=== PATIENT | female | born 1955 | race Caucasian/White ===

== ENCOUNTER 2016-07-08 10:02 | Outpatient (CLI) | payer BC | END 2016-07-08 10:03 | disposition home or self-care (01) | DX: Z79.899 Other long term (current) drug therapy (principal); N28.9 Disorder of kidney and ureter, unspecified ==

== ENCOUNTER 2016-07-13 07:04 | Outpatient (CLI) | payer BC ==
[2016-07-13] MEDS ORDERED: IOPAMIDOL-300 100 ML VIAL IVP ONE (08:44)
[2016-07-13] MEDS ORDERED: IOPAMIDOL-300 50 ML VIAL PO ONE (08:44)
== END 2016-07-13 07:05 | disposition home or self-care (01) ==
DX: R63.4 Abnormal weight loss (principal); E04.9 Nontoxic goiter, unspecified
CPT/HCPCS: 71260; 74177; Q9967

== ENCOUNTER 2016-07-20 09:31 | Outpatient (CLI) | payer BC | END 2016-07-20 09:32 | disposition home or self-care (01) | DX: E04.2 Nontoxic multinodular goiter (principal) ==

== ENCOUNTER 2016-07-28 09:50 | Outpatient (CLI) | payer BC | END 2016-07-28 09:51 | disposition home or self-care (01) | DX: E04.1 Nontoxic single thyroid nodule (principal); E01.0 Iodine-deficiency related diffuse (endemic) goiter ==

== ENCOUNTER 2016-08-04 09:25 | Outpatient (CLI) | payer BC ==
[2016-08-04] MEDS ORDERED: BUFFERED LIDOCAINE 10 ML SYRINGE IU ONE (10:50)
== END 2016-08-04 09:26 | disposition home or self-care (01) ==
DX: E04.1 Nontoxic single thyroid nodule (principal)

== ENCOUNTER 2016-08-14 10:48 | Emergency (ER) | payer BC | END 2016-08-14 12:54 | disposition home or self-care (01) | DX: F32.9 Major depressive disorder, single episode, unspecified (principal); G47.00 Insomnia, unspecified; I10 Essential (primary) hypertension ==

== ENCOUNTER 2016-09-27 13:49 | Outpatient (CLI) | payer BC | END 2016-09-27 13:50 | disposition home or self-care (01) | DX: Z12.31 Encounter for screening mammogram for malignant neoplasm of breast (principal) ==

== ENCOUNTER 2017-10-11 14:36 | Outpatient (CLI) | payer BC ==
--- NOTE | 2017-10-12 14:47 | Mammography Report ---
SCREENING MAMMOGRAM: 10/12/2017 CLINICAL INDICATION: A 62-year-old for screening. COMPARISON: 09/2016, 06/2014, 01/2013, 07/2011, 07/2010 TECHNIQUE: Routine CC and MLO projections were obtained of the breasts. FINDINGS: Parenchymal tissue within the breasts is predominantly fatty replaced. There are no dominant masses, suspicious microcalcifications, or secondary signs of malignancy. In comparison to the previous studies, there are no significant changes. IMPRESSION: NO MAMMOGRAPHIC EVIDENCE OF MALIGNANCY. NO SIGNIFICANT INTERVAL CHANGES. RECOMMENDATION: Screening mammography is recommended annually. BIRADS category 1 - negative. STANDARD QUALIFYING STATEMENTS: 1. This examination was reviewed with the aid of Computed-Aided Detection (CAD). 2. A negative or benign imaging report should not delay biopsy if clinically suspicious findings are present. Consider surgical consultation if warranted. More than 5% of cancers are not identified by imaging. 3. Dense breasts may obscure an underlying neoplasm. TD: 10/12/2017 14:47
== END 2017-10-11 14:37 | disposition home or self-care (01) ==
LOC: DI.N 14:36
PROVIDERS: ATTEND Family Medicine
DX: Z12.31 Encounter for screening mammogram for malignant neoplasm of breast (principal)
CPT/HCPCS: 77067

== ENCOUNTER 2017-12-27 16:40 | Outpatient (CLI) | payer BC ==
[2017-12-27 19:45] LABS: BILIRUBIN,URINE NEGATIVE (NEGATIVE); GLUCOSE, URINE (UA) NEGATIVE (NEGATIVE); KETONES,URINE (UA) NEGATIVE (NEGATIVE); LEUKOCYTE ESTERASE, URINE NEGATIVE (NEGATIVE); NITRITE,URINE NEGATIVE (NEGATIVE); OCCULT BLOOD,URINE NEGATIVE (NEGATIVE); PROTEIN,URINE NEGATIVE (NEGATIVE); UROBILINOGEN,URINE 0.2 (NORMAL) E.U./dL (NORMAL)
[2017-12-27 19:46] LABS: CLARITY,URINE TURBID (CLEAR)
[2017-12-27 20:06] LABS: AMORPHOUS SEDIMENT,UR Rare /LPF; BACTERIA,URINE Many /HPF (None Seen); RBC,URINE 0-5 /HPF (0-5); SQUAMOUS EPITHELIAL CELL,UR RARE Squamous (<= Few)
== END 2017-12-27 16:41 | disposition home or self-care (01) ==
LOC: LAB.R 16:40
PROVIDERS: ATTEND Obstetrics & Gynecology
DX: R82.99 Other abnormal findings in urine (principal)
CPT/HCPCS: 81001; 87086

== ENCOUNTER 2018-03-22 15:05 | Outpatient (CLI) | payer BC ==
--- NOTE | 2018-03-23 10:25 | Ultrasound Report ---
Reason: ABDOMINAL DISTENSION (GASEOUS) Procedure Date: 03/22/2018 Accession Number: [id number] / [id number] Procedure: US - Pelvic w/Transvaginal CPT Code: FULL RESULT: EXAM: PELVIC ULTRASOUND EXAM DATE: 03/22/2018 05:28 PM. CLINICAL HISTORY: Abdominal distension (gaseous). COMPARISON: ABDOMEN/PELVIS W/ 07/13/2016 8:40 AM. TECHNIQUE: Real-time transabdominal pelvic scan performed to identify the uterus and adnexa and as an overview of other pelvic structures, followed by transvaginal scan to provide greater detail of the uterus and adnexa, with static image documentation. FINDINGS: Uterus: 5.4 x 1.9 x 2.1 cm, volume 11.2 cc. Anteverted position. Heterogeneous. No mass. Masses: None. Endometrium: No polyp or mass. Endometrium is filled by fluid. Normal. Cervix: 1.4 x 1.1 x 1.4 cm hypoechoic avascular region in the cervix with dense posterior acoustic shadowing. Right Ovary: 2.1 x 1 x 1.5 cm, volume 1.6 cc. Normal echotexture and blood flow. Left Ovary: 3.8 x 1.3 x 1.4 cm, volume 3.6 cc. Normal echotexture and blood flow. Hypoechoic 1.7 x 1.6 x 1.8 cm left ovarian cyst. No vascular components or mural nodules. Free Fluid: None. Other: None. IMPRESSION: 1. Heterogeneous myometrium. No fibroid. 2. No endometrial mass or polyp. Endometrial canal is filled by fluid. Correlate for dysfunctional uterine bleeding. 3. Hypoechoic solid-appearing structure in the cervix/lower uterine segment measuring 1.4 x 1.1 x 1.4 cm demonstrating dense posterior acoustic shadowing. Potentially, this could be secondary to calcifications or mass. This may be amenable for direct visualization. 4. 1.7 x 1.6 x 1.8 cm left ovarian cyst. Otherwise, both ovaries and adnexa are normal. RADIA
== END 2018-03-22 15:06 | disposition home or self-care (01) ==
LOC: DI 15:05
PROVIDERS: ATTEND Obstetrics & Gynecology
DX: R14.0 Abdominal distension (gaseous) (principal); N83.202 Unspecified ovarian cyst, left side; N88.9 Noninflammatory disorder of cervix uteri, unspecified
CPT/HCPCS: 76830; 76856

== ENCOUNTER 2018-10-23 14:36 | Outpatient (CLI) | payer BC ==
--- NOTE | 2018-10-24 10:28 | Mammography Report ---
Reason: SCREENING MAMMO Procedure Date: 10/23/2018 Accession Number: [id number] / [id number] Procedure: MGN - Screening Mammo Dig Bilat CPT Code: FULL RESULT: EXAM: Screening Mammo Dig Bilat DATE: 10/23/2018 2:57 PM CLINICAL HISTORY: Screening examination. History of early menses. TECHNIQUE: (B) - Bilateral CC and MLO views were obtained. COMPARISON: 10/11/2017 through 02/05/2013. PARENCHYMAL PATTERN: (F) - The breast(s) demonstrate(s) diffuse fatty replacement. FINDINGS: There are no suspicious masses, calcifications, or areas of distortion. IMPRESSION: Negative examination. BI-RADS category 1. RECOMMENDATION: (ANNUAL) - Recommend routine annual screening mammography. BI-RADS CATEGORY: (1) - Negative. STANDARD QUALIFYING STATEMENTS: 1. This examination was not reviewed with the aid of Computer-Aided Detection (CAD). 2. A negative or benign imaging report should not preclude biopsy if clinically suspicious findings are present. 3. Dense breasts may obscure an underlying neoplasm. 4. This examination was reviewed without the aid of 3D breast imaging (tomosynthesis).
== END 2018-10-23 14:37 | disposition home or self-care (01) ==
LOC: DI.N 14:36
DX: Z12.31 Encounter for screening mammogram for malignant neoplasm of breast (principal)
CPT/HCPCS: 77067

== ENCOUNTER 2020-04-07 14:34 | Outpatient (CLI) | payer OTHER ==
--- NOTE | 2020-04-08 16:44 | Mammography Report ---
BILATERAL DIGITAL SCREENING MAMMOGRAM 3D/2D: 04/07/2020 CLINICAL: Routine screening. Comparison is made to exams dated: 10/23/2018 mammogram, 10/11/2017 mammogram, and 09/27/2016 mammogram - [facility]. The tissue of both breasts is predominantly fatty. No significant masses, calcifications, or other findings are seen in either breast. There has been no significant interval change. IMPRESSION: NEGATIVE There is no mammographic evidence of malignancy. A 1 year screening mammogram is recommended. This exam was interpreted at Station ID: [id number]. NOTE: For mammograms, a report in lay terms will be sent to the patient. Approximately 15% of breast malignancies will not be visualized mammographically. In the management of a palpable breast mass, a negative mammogram must not discourage biopsy of a clinically suspicious lesion. Electronically Signed By: Tomy hearn/[email or web address]:04/07/2020 17:04:16 ACR BI-RADS Category 1: Negative 3341F PARENCHYMAL PATTERN: (F) - The breast(s) demonstrate(s) diffuse fatty replacement. BI-RADS CATEGORY: (1) - 1 RECOMMENDATION: (ANNUAL) - Recommend routine annual screening mammography. [id number] 1 year screening LATERALITY: (B)
== END 2020-04-07 14:35 | disposition home or self-care (01) ==
LOC: DI.N 14:34
DX: Z12.31 Encounter for screening mammogram for malignant neoplasm of breast (principal)
CPT/HCPCS: 77063; 77067

== ENCOUNTER 2020-05-06 18:38 | Outpatient (CLI) | payer OTHER | END 2020-05-06 18:39 | disposition home or self-care (01) | LOC: COV 18:38 | PROVIDERS: ATTEND Family Medicine | DX: R05 Cough (principal); J02.9 Acute pharyngitis, unspecified; R19.7 Diarrhea, unspecified; Z20.828 Contact with and (suspected) exposure to other viral communicable diseases ==

== ENCOUNTER 2021-02-06 06:52 | Day surgery (SDC) | payer OTHER ==
[2021-02-06] MEDS ORDERED: LACTATED RINGERS 1,000 ML IV ONE ×2 (07:01→09:42)
[2021-02-06] MEDS ORDERED: MIDAZOLAM 2 MG/2 ML VIAL ONE ×2 (08:42→08:43)
[2021-02-06] MEDS ORDERED: fentaNYL 250 MCG/5 ML VIAL ONE (08:43)
--- NOTE | 2021-02-06 09:00 | HISTORY & PHYSICAL EXAMINATION ---
Chief Complaint - Chief Complaint Chief Complaint: Here for colon cancer screening History of Present Illness - History Obtained From Records Reviewed: yes History obtained from: pt Exam Limitations: none - History of Present Illness HPI Comment/Other: Normal colonoscopy over 10 years ago. Due for colon cancer screening. History - Past Medical History Cardiovascular: reports: Hypertension Respiratory: reports: None Endocrine/Autoimmune: reports: None GI: reports: None : reports: Renal insuffiency Psych: reports: Depression, Anxiety Musculoskeletal: reports: None Derm: reports: Other MRSA Hx?: No - Past Surgical History General: reports: Appendectomy Ortho: reports: Other Meds/Allgy - Home Medications Home Medications: Ambulatory Orders Medication Instructions Recorded Confirmed Mirtazapine 15 mg PO DAILY PM 02/05/21 02/05/21 Sertraline HCl 200 mg PO DAILY 02/05/21 02/05/21 - Allergies Allergies/Adverse Reactions: Allergies Allergy/AdvReac Type Severity Reaction Status Date / Time No Known Drug Allergies Allergy Verified 08/14/16 11:01 Review of Systems - Other Findings Other Findings: 10 pt ros as above otherwise unremarkable Exam - Vital Signs Reviewed Vital Signs: Yes Vital Signs: Vital Signs x48h Temp Pulse Resp BP Pulse Ox 02/06/21 07:01 36.0 C L 84 18 170/70 H 99 - Physical Exam General Appearance: positive: No acute distress, Alert Eyes Bilateral: positive: PERRL, EOMI ENT: positive: No signs of dehydration Neck: positive: No JVD Respiratory: positive: Breath sounds nml Cardiovascular: positive: Regular rate & rhythm Abdomen: positive: Non-tender, No distention Neurologic/Psychiatric: positive: Oriented x3 Conclusion/Plan - Problem List (1) Colon cancer screening Conclusion/Plan: Plan colonoscopy. parq held and consent obtained
[2021-02-06 10:41] VITALS: BP 140/72
== END 2021-02-06 06:53 | disposition home or self-care (01) ==
LOC: SDS 06:52
PROVIDERS: ATTEND Surgery
PROC: 0DBN8ZZ Excision of Sigmoid Colon, Via Natural or Artificial Opening Endoscopic (ICD-10-PCS; principal; 2021-02-06 08:30)
DX: Z12.11 Encounter for screening for malignant neoplasm of colon (principal); F32.9 Major depressive disorder, single episode, unspecified; F41.9 Anxiety disorder, unspecified; D12.4 Benign neoplasm of descending colon
CPT/HCPCS: 45380; J3010; J7120

== ENCOUNTER 2021-10-23 09:49 | Outpatient (CLI) | payer OTHER ==
[2021-10-23 12:15] LABS: ALBUMIN 4.7 g/dL (3.2-5.5); ALBUMIN/GLOBULIN RATIO 1.3 (1.0-2.2); BILIRUBIN,TOTAL 0.7 mg/dL (0.2-1.0); CALCIUM 9.9 mg/dL (8.5-10.3); POTASSIUM 4.2 mmol/L (3.5-5.0); TOTAL PROTEIN 8.2 g/dL (6.7-8.2)
[2021-10-23 12:16] LABS: BASOPHILS % (AUTO) 1.2 %; EOSINOPHILS # (AUTO) 0.1 10^3/uL (0.0-0.7); EOSINOPHILS % (AUTO) 4.1 %; HCT - HEMATOCRIT 49.6 % (37.0-47.0); HGB - HEMOGLOBIN 16.6 g/dL (12.0-16.0); LYMPHOCYTES # (AUTO) 1.5 10^3/uL (1.5-3.5); LYMPHOCYTES % (AUTO) 42.9 %; MEAN CORPUSCULAR HEMOGLOBIN 31.4 pg (27.0-31.0); MEAN CORPUSCULAR HGB CONC 33.5 g/dL (32.0-36.0); MEAN CORPUSCULAR VOLUME 93.9 fL (81.0-99.0); MEAN PLATELET VOLUME 9.9 fL (7.9-10.8); MONOCYTES # (AUTO) 0.2 10^3/uL (0.0-1.0); MONOCYTES % (AUTO) 7.1 %; NEUTROPHILS # (AUTO) 1.5 10^3/uL (1.5-6.6); NEUTROPHILS % (AUTO) 44.7 %; PLT - PLATELET COUNT 173 10^3/uL (130-450); RED BLOOD COUNT 5.28 10^6/uL (4.20-5.40); RED CELL DISTRIBUTION WIDTH 13.6 % (12.0-15.0); WHITE BLOOD COUNT 3.4 x10^3/uL (4.8-10.8)
[2021-10-23 12:28] LABS: ESTIMATED AVERAGE GLUCOSE 105 mg/dL (70-100); HEMOGLOBIN A1c% 5.3 % (4.27-6.07); THYROID STIMULATING HORMONE 2.28 uIU/mL (0.34-5.60)
[2021-10-23 12:33] LABS: PROLACTIN 7.67 ng/mL
== END 2021-10-23 09:50 | disposition home or self-care (01) ==
LOC: LAB.N 09:49
PROVIDERS: ATTEND Physician Assistant
DX: Z00.00 Encounter for general adult medical examination without abnormal findings (principal); I10 Essential (primary) hypertension; L65.9 Nonscarring hair loss, unspecified; R73.9 Hyperglycemia, unspecified; L68.0 Hirsutism; E04.1 Nontoxic single thyroid nodule
CPT/HCPCS: 36415; 80053; 82626; 83036; 84146; 84403; 84443; 85025